=== PATIENT | female | born 1955 ===

== ENCOUNTER 2023-03-08 09:24 | Outpatient (RCR) | payer MEDICARE, OTHER, SELFPAY | END 2023-03-08 23:59 | disposition home or self-care (01) | LOC: RPT 09:24 | PROVIDERS: ATTENDING PHYSICIAN Internal Medicine Rheumatology; FAMILY PHYSICIAN Internal Medicine | DX: I97.2 Postmastectomy lymphedema syndrome (principal); Z73.6 Limitation of activities due to disability; R20.0 Anesthesia of skin; M06.9 Rheumatoid arthritis, unspecified; Z85.3 Personal history of malignant neoplasm of breast; Z90.11 Acquired absence of right breast and nipple | CPT/HCPCS: 97162; 97535 ==

== ENCOUNTER 2023-06-01 14:55 | Outpatient (RCR) | payer MEDICARE, OTHER, SELFPAY | END 2023-06-01 23:59 | disposition home or self-care (01) | LOC: RPT 14:55 | PROVIDERS: ATTENDING PHYSICIAN Internal Medicine Rheumatology; FAMILY PHYSICIAN Internal Medicine | DX: I89.0 Lymphedema, not elsewhere classified (principal); Z73.6 Limitation of activities due to disability | CPT/HCPCS: 97110; 97140; 97535 ==

== ENCOUNTER 2023-06-22 14:12 | Outpatient (RCR) | payer MEDICARE, OTHER, SELFPAY | END 2023-06-22 23:59 | disposition home or self-care (01) | LOC: RPT 14:12 | PROVIDERS: ATTENDING PHYSICIAN Internal Medicine Rheumatology; FAMILY PHYSICIAN Internal Medicine | DX: I89.0 Lymphedema, not elsewhere classified (principal); Z73.6 Limitation of activities due to disability | CPT/HCPCS: 97110; 97140 ==

== ENCOUNTER → 2023-07-21 08:10 | Outpatient (REF) | payer MEDICARE, OTHER, SELFPAY | LOC: WOUND 08:10 | PROVIDERS: ATTENDING PHYSICIAN Surgery | DX: L97.322 Non-pressure chronic ulcer of left ankle with fat layer exposed (principal); C44.701 Unspecified malignant neoplasm of skin of unspecified lower limb, including hip; I89.0 Lymphedema, not elsewhere classified; I83.90 Asymptomatic varicose veins of unspecified lower extremity; Z90.11 Acquired absence of right breast and nipple; Z85.3 Personal history of malignant neoplasm of breast; I97.2 Postmastectomy lymphedema syndrome | CPT/HCPCS: 88305; 11104; 11105; 99204 ==

== ENCOUNTER → 2023-07-28 08:56 | Outpatient (REF) | payer MEDICARE, OTHER, SELFPAY | LOC: WOUND 08:56 | PROVIDERS: ATTENDING PHYSICIAN Surgery | DX: L97.322 Non-pressure chronic ulcer of left ankle with fat layer exposed (principal); C44.701 Unspecified malignant neoplasm of skin of unspecified lower limb, including hip; I83.90 Asymptomatic varicose veins of unspecified lower extremity; I97.2 Postmastectomy lymphedema syndrome; Z90.11 Acquired absence of right breast and nipple; Z85.3 Personal history of malignant neoplasm of breast | CPT/HCPCS: 99212 ==

== ENCOUNTER → 2023-08-01 09:42 | Outpatient (REF) | payer MEDICARE, OTHER, SELFPAY | LOC: WOUND 09:42 | PROVIDERS: ATTENDING PHYSICIAN Surgery | DX: L97.311 Non-pressure chronic ulcer of right ankle limited to breakdown of skin (principal); I89.0 Lymphedema, not elsewhere classified; I83.90 Asymptomatic varicose veins of unspecified lower extremity; Z90.11 Acquired absence of right breast and nipple; Z85.3 Personal history of malignant neoplasm of breast; I97.2 Postmastectomy lymphedema syndrome; I87.2 Venous insufficiency (chronic) (peripheral); I73.9 Peripheral vascular disease, unspecified | CPT/HCPCS: 11042 ==

== ENCOUNTER → 2023-08-08 09:48 | Outpatient (REF) | payer MEDICARE, OTHER, SELFPAY | LOC: WOUND 09:48 | PROVIDERS: ATTENDING PHYSICIAN Surgery | DX: L97.311 Non-pressure chronic ulcer of right ankle limited to breakdown of skin (principal); I89.0 Lymphedema, not elsewhere classified; I83.90 Asymptomatic varicose veins of unspecified lower extremity; I97.2 Postmastectomy lymphedema syndrome; I87.2 Venous insufficiency (chronic) (peripheral); I73.9 Peripheral vascular disease, unspecified; Z85.3 Personal history of malignant neoplasm of breast; Z90.11 Acquired absence of right breast and nipple | CPT/HCPCS: 11042; 73610 ==

== ENCOUNTER → 2023-08-15 10:13 | Outpatient (REF) | payer MEDICARE, OTHER, SELFPAY | LOC: WOUND 10:13 | PROVIDERS: ATTENDING PHYSICIAN Surgery | DX: L97.311 Non-pressure chronic ulcer of right ankle limited to breakdown of skin (principal); I89.0 Lymphedema, not elsewhere classified; I83.90 Asymptomatic varicose veins of unspecified lower extremity; Z90.11 Acquired absence of right breast and nipple; Z85.3 Personal history of malignant neoplasm of breast; M06.9 Rheumatoid arthritis, unspecified; I97.2 Postmastectomy lymphedema syndrome; I87.2 Venous insufficiency (chronic) (peripheral); I73.9 Peripheral vascular disease, unspecified | CPT/HCPCS: 11042; 11045 ==

== ENCOUNTER → 2023-08-22 10:07 | Outpatient (REF) | payer MEDICARE, OTHER, SELFPAY | LOC: WOUND 10:07 | PROVIDERS: ATTENDING PHYSICIAN Surgery | DX: L97.311 Non-pressure chronic ulcer of right ankle limited to breakdown of skin (principal); I83.90 Asymptomatic varicose veins of unspecified lower extremity; Z90.11 Acquired absence of right breast and nipple; Z85.3 Personal history of malignant neoplasm of breast; M06.9 Rheumatoid arthritis, unspecified; I97.2 Postmastectomy lymphedema syndrome; I87.2 Venous insufficiency (chronic) (peripheral); I73.9 Peripheral vascular disease, unspecified | CPT/HCPCS: 11042 ==

== ENCOUNTER → 2023-08-29 08:49 | Outpatient (REF) | payer MEDICARE, OTHER, SELFPAY | LOC: WOUND 08:49 | PROVIDERS: ATTENDING PHYSICIAN Surgery | DX: L97.311 Non-pressure chronic ulcer of right ankle limited to breakdown of skin (principal); I89.0 Lymphedema, not elsewhere classified; I83.90 Asymptomatic varicose veins of unspecified lower extremity; Z90.11 Acquired absence of right breast and nipple; Z85.3 Personal history of malignant neoplasm of breast; M06.9 Rheumatoid arthritis, unspecified; I97.2 Postmastectomy lymphedema syndrome; I87.2 Venous insufficiency (chronic) (peripheral); I73.9 Peripheral vascular disease, unspecified | CPT/HCPCS: 11042 ==

== ENCOUNTER → 2023-09-05 09:55 | Outpatient (REF) | payer MEDICARE, OTHER, SELFPAY | LOC: WOUND 09:55 | PROVIDERS: ATTENDING PHYSICIAN Surgery | DX: L97.311 Non-pressure chronic ulcer of right ankle limited to breakdown of skin (principal); I83.90 Asymptomatic varicose veins of unspecified lower extremity; M06.9 Rheumatoid arthritis, unspecified; I97.2 Postmastectomy lymphedema syndrome; I87.2 Venous insufficiency (chronic) (peripheral); I73.9 Peripheral vascular disease, unspecified; Z85.3 Personal history of malignant neoplasm of breast; Z90.11 Acquired absence of right breast and nipple | CPT/HCPCS: 11042 ==

== ENCOUNTER → 2023-09-12 09:26 | Outpatient (REF) | payer MEDICARE, OTHER, SELFPAY | LOC: WOUND 09:26 | PROVIDERS: ATTENDING PHYSICIAN Surgery | DX: L97.311 Non-pressure chronic ulcer of right ankle limited to breakdown of skin (principal); I83.90 Asymptomatic varicose veins of unspecified lower extremity; M06.9 Rheumatoid arthritis, unspecified; I97.2 Postmastectomy lymphedema syndrome; I87.2 Venous insufficiency (chronic) (peripheral); I73.9 Peripheral vascular disease, unspecified; Z85.3 Personal history of malignant neoplasm of breast | CPT/HCPCS: 11042 ==

== ENCOUNTER → 2023-09-19 10:00 | Outpatient (REF) | payer MEDICARE, OTHER, SELFPAY | LOC: WOUND 10:00 | PROVIDERS: ATTENDING PHYSICIAN Surgery | DX: L97.311 Non-pressure chronic ulcer of right ankle limited to breakdown of skin (principal); I89.0 Lymphedema, not elsewhere classified; I83.90 Asymptomatic varicose veins of unspecified lower extremity; Z90.11 Acquired absence of right breast and nipple; Z85.3 Personal history of malignant neoplasm of breast; M06.9 Rheumatoid arthritis, unspecified; I97.2 Postmastectomy lymphedema syndrome; I87.2 Venous insufficiency (chronic) (peripheral); I73.9 Peripheral vascular disease, unspecified | CPT/HCPCS: 11042 ==

== ENCOUNTER → 2023-10-03 09:31 | Outpatient (REF) | payer MEDICARE, OTHER, SELFPAY | LOC: WOUND 09:31 | PROVIDERS: ATTENDING PHYSICIAN Surgery | DX: L97.311 Non-pressure chronic ulcer of right ankle limited to breakdown of skin (principal); I89.0 Lymphedema, not elsewhere classified; I83.90 Asymptomatic varicose veins of unspecified lower extremity; Z90.11 Acquired absence of right breast and nipple; Z85.3 Personal history of malignant neoplasm of breast; M06.9 Rheumatoid arthritis, unspecified; I97.2 Postmastectomy lymphedema syndrome; I87.2 Venous insufficiency (chronic) (peripheral); I73.9 Peripheral vascular disease, unspecified | CPT/HCPCS: 11042 ==

== ENCOUNTER → 2023-10-19 09:53 | Outpatient (REF) | payer MEDICARE, OTHER, SELFPAY | LOC: WOUND 09:53 | PROVIDERS: ATTENDING PHYSICIAN Surgery | DX: L97.311 Non-pressure chronic ulcer of right ankle limited to breakdown of skin (principal); I89.0 Lymphedema, not elsewhere classified; I83.90 Asymptomatic varicose veins of unspecified lower extremity; Z90.11 Acquired absence of right breast and nipple; Z85.3 Personal history of malignant neoplasm of breast; M06.9 Rheumatoid arthritis, unspecified; I87.2 Venous insufficiency (chronic) (peripheral); I73.9 Peripheral vascular disease, unspecified | CPT/HCPCS: 99212 ==